=== PATIENT | male | born 1965 | race Caucasian/White ===

== ENCOUNTER 2022-07-01 23:32 | Inpatient (IN) | payer MEDICARE, SELFPAY ==
[2022-07-01 23:33] VITALS: BP 137/99; PULSE 117; RESP 36; TEMP 36.1; O2SAT 99; BMI 23.8
--- NOTE | 2022-07-01 23:38 | EKG12_ITS ---
Test Reason : CP Blood Pressure : / mmHG Vent. Rate : 113 BPM Atrial Rate : 113 BPM P-R Int : 156 ms QRS Dur : 092 ms QT Int : 336 ms P-R-T Axes : 069 044 110 degrees QTc Int : 460 ms Sinus tachycardia Nonspecific ST and T wave abnormality Abnormal ECG Confirmed by RODGER ARMAS, GAVINO ([id number]), industrial editor ROEL GARCIA ([id number]) on 07/04/2022 11:24:24 AM Referred By: MAXIME Confirmed By:GAVINO SOARES MD
--- NOTE | 2022-07-01 23:45 | RAD_ITS ---
INDICATION: chest pain EXAMINATION/TECHNIQUE: X-RAY - XR Chest 1 View COMPARISON: No previous relevant examinations available for comparison.. FINDINGS: LIFE-SUPPORT AND LINES: 1. None HEART AND VESSELS: The cardiac silhouette, pulmonary vasculature have normal appearance. No evidence of congestive failure. LUNGS AND PLEURAL SPACES: Lungs are well expanded however subtle area of density projecting along the lateral aspect of the RIGHT midlung adjacent to the posterior RIGHT sixth rib. This is of uncertain etiology, however focal area of atelectasis versus obscured nodule are considerations. No consolidation, no effusion. MEDIASTINUM AND HILAR REGIONS: No masses adenopathy noted. No areas of calcification. Visualized upper airway is normal in position. BONY ELEMENTS: No acute bony changes noted. RAD/Chest 1 View (Portable) IMPRESSION: 1. Subtle area of density along periphery the RIGHT midlung projecting at the level of the RIGHT posterior sixth rib. This is of uncertain etiology, however atelectasis versus area infiltrate, alternatively obscured nodule are considerations. Consider short-term follow-up in the absence previous imaging evaluation with CT is a consideration. 2. No other evidence of acute cardiopulmonary process. No congestive failure. Electronically Signed: Cordell Hunter MD at 0:19 EST ,
[2022-07-01 23:47] LABS: Absolute Neutrophil Count 20.9 X10^3/uL (2.0-7.7); Basophil# 0.09 X10^3/uL; Basophil% 0.4 % (0-1); Hematocrit 47.4 % (40-54); Hemoglobin 16.5 g/dL (13.0-16.5); Mean Corp Hgb Conc 34.8 g/dL (32-36); Mean Corpuscular Hgb 33.4 pg (27.0-32.0); Mean Platelet Vol. 9.8 fl (6.2-12.0); Monocyte% 4.1 % (0-10); NRBC Flagged by Analyzer 0 % (0-5); Neutrophil # 20.92 X10^3/uL (2.7-7.7); POSITIVE DIFFERENTIAL YES; Platelet Count 312 K/mm3 (150-450); RBC Distribution Width CV 12.6 % (11.6-14.6); RBC Distribution Width SD 44.8 fl (35.1-43.9); Red Blood Count 4.94 M/mm3 (4.6-6.2); White Blood Count 24.3 K/mm3 (4.4-11.0)
[2022-07-01 23:52] LABS: Differential Indicated SCAN CRITERIA MET
[2022-07-02] VITALS (17 sets, daily range): BP systolic 108–146; BP diastolic 69–100; PULSE 74–99; RESP 12–25; TEMP 36.2–37.1; O2SAT 94–98; BMI 24.5
[2022-07-02 00:03] LABS: Anion Gap 14 (5-15); BUN 17 mg/dL (7-18); BUN/Creat Ratio 7.8 RATIO (10-20); Calcium,Total 10.4 mg/dL (8.5-10.1); Chloride 103 mmol/L (98-107); Creatinine, Serum 2.18 mg/dL (0.70-1.30); EST Glomerular Filtration Rate 33 mL/min (>60); Est Glom Filt Rate - Afr Amer 40 mL/min (>60); Estimated Creatinine Clearance 40.05 ml/min; Glucose 154 mg/dL (74-106); Potassium 3.8 mmol/L (3.5-5.1); Sodium Level 139 mmol/L (136-145); Troponin-I HS 27 pg/mL (3.0-78.0)
[2022-07-02] MEDS: Morphine 4 MG/ML Syringe IV (00:19)
[2022-07-02] MEDS: Ondansetron 4 MG/2 ML Vial IV (00:19)
[2022-07-02] MEDS: 0.9% Normal Saline 1,000 ML 999 ML IV ×2 (00:19→01:11)
[2022-07-02 00:25] LABS: Mucous, Urine 0 SEEN /hpf (<or=2+)
[2022-07-02 00:34] LABS: AST(SGOT) 17 U/L (15-37); Alanine Aminotransfer ALT/SGPT 27 U/L (16-61); Albumin, Serum 5.1 g/dL (3.2-5.0); Alkaline Phosphatase 109 U/L (45-117); Bilirubin, Direct 0.27 mg/dL (0.00-0.30); Globulin 4.1 g/dL (2.2-4.2); Lipase 112 U/L (73-393); Protein, Total 9.2 g/dL (6.4-8.2)
[2022-07-02 00:35] LABS: Differential Comment SCANNED
[2022-07-02 00:38] LABS: Color, Urine Yellow (Yellow); Glucose, Dipstick Normal (Normal); Ketone-Dipstick 15 mg/dl (Negative); Leukocyte Esterase-Dipstick 100 /ul (Negative); Nitrite-Dipstick Negative (Negative); Occult Blood-Urine 25 /ul (Negative); Protein-Dipstick 100 mg/dl (Negative); Specific Gravity, Urine 1.025 (1.002-1.030); Urine Clarity Cloudy (Clear); Urine Urobilinogen 1 mg/dl (Normal)
[2022-07-02 00:39] LABS: Urine Bilirubin Dipstick 1 mg/dL (Negative)
[2022-07-02 00:46] LABS: White Blood Cells 25-50 SEEN /hpf (0-5)
[2022-07-02 00:47] LABS: Bacteria 1+ /hpf (None Seen); Hyaline Cast 25-50 SEEN /lpf (0-5); Red Blood Cells-Urine 5-10 SEEN /hpf (0-5); Squamous Epithelial Cells - UA 0-5 SEEN /hpf (0-5)
--- NOTE | 2022-07-02 00:59 | CT_ITS ---
INDICATION: pain syncopal episode, chest pain, history of lung nodules. EXAMINATION: CT CHEST, ABDOMEN AND PELVIS WITHOUT CONTRAST TECHNIQUE: Helically acquired images were obtained of the chest, abdomen and pelvis. A radiation dose optimization technique was used for this scan. IV Contrast dosage and agent: None. Oral contrast: None. Radiation Dose (provided by facility) CTDIvol (NA ) mGy, DLP ( NA) mGy-cm COMPARISON: Previous imaging reported for evaluation of lung nodules is not currently available. FINDINGS: ----Chest: LUNGS, PLEURA AND LARGE AIRWAYS: Lungs are well-expanded. No consolidation or effusion noted. Multiple areas of pleural thickening and scattered areas of nodularity are noted. No damari pulmonary infiltrate identified. There is a RIGHT upper lobe pulmonary nodule of mildly irregular contour measuring approximately 5.6 mm size (series 6: Image 51. Additional pulmonary nodule in the LEFT upper lobe measures approximately 4 x 5 mm (series 6: Image 62). Subtle patchy areas of interstitial prominence noted at both lung bases. No pleural effusion. THYROID: No thyroid lesions. HEART AND PERICARDIUM: Heart size is normal. No pericardial effusion. No coronary vascular calcifications noted. VESSELS: Thoracic aorta is not dilated. MEDIASTINUM AND XAVI: No mediastinal or hilar adenopathy. Esophagus is unremarkable. No hiatal hernia. BONES: No lytic or blastic abnormality. ----Abdomen/Pelvis: LIVER: The liver has normal configuration and density given the limitation of noncontrast exam. GALLBLADDER AND BILIARY TREE: Gallbladder is distended, no radiodense calcifications or duct dilatation. No pericholecystic fluid. No intra- or extrahepatic biliary ductal dilation. PANCREAS: No focal cystic or solid mass. [] SPLEEN: Normal size without focal cystic or solid mass. ADRENAL GLANDS: No nodules. KIDNEYS AND URETERS: Normal renal size and position. No hydronephrosis or nephrolithiasis. PERITONEUM: No ascites or free air. No other fluid collection. BOWEL: No evidence of acute appendicitis. No stomach or bowel distension. No focal inflammatory change. LYMPH NODES: No enlarged mesenteric or retroperitoneal lymph nodes. VESSELS: Aorta is non-dilated. URINARY BLADDER: Unremarkable. REPRODUCTIVE ORGANS: No pelvic masses. ABDOMINAL WALL: No discrete abdominal or pelvic wall hernia. BONES: No lytic or blastic abnormality. Mild chronic wedging of multiple thoracic vertebral with mild deformity of the superior endplates however no acute fractures or destructive bony process noted. CT/CT Chest, Abd, Pelvis WO Cont IMPRESSION: 1. Mild pleural and parenchymal scarring and atelectasis at the lung bases. No pulmonary consolidation or effusion. 2. Scattered pulmonary nodules as detailed. Previous cross-sectional imaging is not available for comparison at this time, however follow-up per the previous recommendations is warranted to assure stability. 3. No masses or adenopathy involving the mediastinum or hilar regions. 4. No evidence of masses bowel obstruction abscess free fluid or free air. Normal appendix noted. No evidence diverticulitis. 5. Distended gallbladder without evidence radiodense calcifications, pericholecystic fluid or duct dilatation. 6. No evidence of obstructive uropathy. Electronically Signed: Cordell Hunter MD at 2:10 EST ,
[2022-07-02 01:15] LABS: Procalcitonin 0.19 ng/mL (0.00-0.09)
[2022-07-02 02:11] LABS: Troponin-I HS 33 pg/mL (3.0-78.0)
--- NOTE | 2022-07-02 02:43 | PCM.HP.STD ---
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 He had nausea, and vomiting and he did not have the strength to perform; and he felt like he could not stand so he laid on the ground. He was pale and diaphoretic. He had subjective fever, chills and rigors. He reports chest tightness; shortness of breath and abdominal pain. He has diffuse abdominal pain and more prominent pain at his right upper quadrant of his abdomen. He called his daughter and was brought to the emergency department right away. Patient has had increased anxiety and stress for a couple of months. He has had malaise about a day before presentation. Also he has had a decreased appetite about 3 days before presentation. He has a dysuria that has not changed from his baseline. This dysuria every morning is unchanged. He thinks that he has had decreased urine output/decreased frequency of urination a day of presentation. However he think that his fluid intake decreased on the day of presentation. At the emergency room patient was empirically started on vancomycin and Zosyn. Reportedly has some rash his face that exacerbated with vancomycin administration. Reportedly he was started on a statin about a week ago but stopped after taking 2 days because of myopathy. [facility] Medical History (Updated 07/02/22 @ 04:[address] Ab Castañeda MD) Anxiety Depression Hyperlipidemia Home Medications atorvastatin 40 mg tablet (Lipitor) 40 mg PO DAILY 07/01/22 [History Last Taken Unknown] buspirone 10 mg tablet 10 mg PO BID 07/01/22 [History Last Taken Unknown] cholecalciferol (vitamin D3) 125 mcg (5,000 unit) tablet (Vitamin D3) 1,250 mcg PO DAILY 07/01/22 [History Last Taken Unknown] mirtazapine 15 mg tablet 15 mg PO DAILY 07/01/22 [History Last Taken Unknown] paroxetine HCl 40 mg tablet (Paxil) 40 mg PO DAILY 07/01/22 [History Last Taken Unknown] sildenafil 100 mg tablet 100 mg PO DAILY 07/01/22 [History Last Taken Unknown] Allergy/AdvReac Type Severity Reaction Status Date / Time lidocaine Allergy Other Verified 07/01/22 23:46 naproxen [From Naprosyn] Allergy PT UNSURE Verified 07/01/22 23:36 OF REACTION Family History (Updated 07/02/22 @ 03:[address] Ab Castañeda MD) Other Heart disease Leukemia Lymphoma Surgical History (Updated 07/02/22 @ 03:[address] Ab Castañeda MD) History of tonsillectomy Social History (Updated 07/02/22 @ 03:[address] Ab Castañeda MD) Smoking Status: Former smoker substance use type: marijuana ROS ROS Narrative Pertinent positives and pertinent negatives as noted in HPI. All other systems were reviewed and are negative Vital Signs Vital Signs Vital Signs: 07/01/22 23:33 07/01/22 23:39 07/02/22 01:27 Temperature 97.0 F L Temperature Source Temporal Pulse Rate 117 H 94 Respiratory Rate 36 H 17 Blood Pressure 137/99 H 146/83 H Blood Pressure Mean 111 104 Pulse Ox 99 98 Oxygen Delivery Method Room Air Room Air Room Air 07/02/22 01:28 07/02/22 02:24 Temperature 98.2 F Temperature Source Oral Pulse Rate 95 Respiratory Rate 16 Blood Pressure 124/88 H Blood Pressure Mean 100 Pulse Ox 96 Oxygen Delivery Method Room Air Weight Weight: 79.9 kg Body Mass Index (BMI) 23.8 Physical Exam Narrative Physical exam: General: Well-nourished, well-developed. Head: Normocephalic, atraumatic, no tenderness Eyes: Vision is grossly intact. EOMI ENT, no trauma, mildly dry mucous membranes, no rhinorrhea Neck: Nontender, No thyromegaly. CVS: Regular rate and rhythm. S1-S2 present. No murmur, gallop or rub. Respiratory : clear to auscultation bilaterally, chest wall nontender, no wheezing Abdomen: Soft, nondistended, normal bowel sounds, no masses. Right upper quadrant tenderness : Deferred Back: Nontender, no CVA tenderness, no midline spinal tenderness, deformities, step-offs Extremities: Nontender full range of motion, no trauma Skin: Normal color, no trauma, abrasions. Erythematous rash on face (reportedly exacerbated with recommend administration of the ED; erythematous rash lower extremities (reportedly from lichen planus). Neuro: Alert, oriented, cranial nerves II through XII grossly intact. Psychiatry: Normal mood. Normal affect. Not depressed. Not anxious. Results Lab / Micro Data Result Diagrams: 07/01/22 23:35 07/01/22 23:35 Labs: Laboratory Results - last 24 hr 07/01/22 23:35: WBC 24.3 H, RBC 4.94, Hgb 16.5, Hct 47.4, MCV 96.0 H, MCH 33.4 H, MCHC 34.8, RDW Std Deviation 44.8 H, RDW Coeff of Miguel 12.6, Plt Count 312, MPV 9.8, Immature Gran % (Auto) 0.500, Neut % (Auto) 86.0 H, Lymph % (Auto) 9.0 L, [place] % (Auto) 4.1, Eos % (Auto) 0.0, Baso % (Auto) 0.4, Absolute Neuts (auto) 20.9 H, Absolute Lymphs (auto) 2.20, Nucleated RBC % 0, Differential Comment SCANNED 07/01/22 23:35: Sodium 139, Potassium 3.8, Chloride 103, Carbon Dioxide 22.0, Anion Gap 14, BUN 17, Creatinine 2.18 H, Estim Creat Clear Calc 40.05, Est GFR (MDRD) Af Amer 40 L, Est GFR (MDRD) Non-Af 33 L, BUN/Creatinine Ratio 7.8 L, Glucose 154 H, Calcium 10.4 H, Troponin I High Sens 27 07/01/22 23:35: Total Bilirubin 1.10 H, Direct Bilirubin 0.27, AST 17, ALT 27, Alkaline Phosphatase 109, Total Protein 9.2 H, Albumin 5.1 H, Globulin 4.1, Lipase 112 07/02/22 00:18: Lactic Acid 4.0 H* 07/02/22 00:18: Procalcitonin 0.19 H 07/02/22 00:18: Urine Color Yellow, Urine Clarity Cloudy, Urine pH 5.0, Ur Specific [place] 1.025, Urine Protein 100 H, Urine Glucose (UA) Normal, Urine Ketones 15 H, Urine Occult Blood 25 H, Urine Nitrite Negative, Urine Bilirubin 1 H, Urine Urobilinogen 1 H, Ur Leukocyte Esterase 100 H, Urine RBC 5-10 SEEN, Urine WBC 25-50 SEEN, Ur Squamous Epith Cells 0-5 SEEN, Urine Bacteria 1+, Hyaline Casts 25-50 SEEN, Urine Mucus 0 SEEN 07/02/22 01:35: Troponin I High Sens 33 Micro: Microbiology 07/02/22 00:15 Nasal Secretion SARS-CoV-2 & FLU Antigen (Rapid) - Final Radiology Impression Chest X-Ray 07/01/22 23:45 IMPRESSION: 1. Subtle area of density along periphery the RIGHT midlung projecting at the level of the RIGHT posterior sixth rib. This is of uncertain etiology, however atelectasis versus area infiltrate, alternatively obscured nodule are considerations. Consider short-term follow-up in the absence previous imaging evaluation with CT is a consideration. 2. No other evidence of acute cardiopulmonary process. No congestive failure. Electronically Signed: Cordell Hunter MD at 0:19 EST , Chest/Abdomen/Pelvis CT 07/02/22 00:59 IMPRESSION: 1. Mild pleural and parenchymal scarring and atelectasis at the lung bases. No pulmonary consolidation or effusion. 2. Scattered pulmonary nodules as detailed. Previous cross-sectional imaging is not available for comparison at this time, however follow-up per the previous recommendations is warranted to assure stability. 3. No masses or adenopathy involving the mediastinum or hilar regions. 4. No evidence of masses bowel obstruction abscess free fluid or free air. Normal appendix noted. No evidence diverticulitis. 5. Distended gallbladder without evidence radiodense calcifications, pericholecystic fluid or duct dilatation. 6. No evidence of obstructive uropathy. Electronically Signed: Cordell Hunter MD at 2:10 EST , Assessment & Plan Assessment/Plan (1) Sepsis: (2) UTI (urinary tract infection): (3) Right upper quadrant abdominal pain: (4) Anxiety attack: (5) AMANDA (acute kidney injury): PLAN: Plan The patient presented with sepsis due to (UTI) with acute sepsis related organ dysfunction as evidenced by (AMANDA with creatinine of 2.18; lactic acidosis with lactic acid of 4.0). SIRS criteria: Respiratory rate more than 20 Heart rate more than 90 WBC more than 12,000. His white count on presentation was 24,300. PCO2 less than 32 mmHg Urinalysis showed negative nitrite; positive urine leukocytes; urine WBC 25-50; squamous cell normal; urine bacteria 1+ Treated with vancomycin and Zosyn at the emergency department. Zosyn continued. Procalcitonin is unremarkable 0.19 but that can be spurious since patient has AMANDA. Blood culture and urine culture obtained emergency department, follow. Trend lactic acid. Right upper quadrant pain CAT scan showed distended gallbladder. CAT scan was individually visualized and interpreted and I agree radiologist interpretation. Will check ultrasound of gallbladder to rule out cholecystitis. AMANDA/ATN Creatinine of 2.18 on presentation. No records on [facility] to compare with. Of note patient goes to the PA. He denies history of CKD. BUN is 17. Urine over creatinine is 7.8. With hyaline cast cannot rule out ATN. Received normal saline bolus in the emergency department. Gentle IV hydration. Trend CMP. Anxiety attack Continue home mood medications. Stable Hypercalcemia Calcium of 10.4. IV hydration. Trend CMP. Check vitamin D level. Hyperbilirubinemia Mild elevation of total bilirubin of 1.10 at presentation. Secondary to stress/disease. Trend CMP. 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 Continue outpatient follow-up. DVT prophylaxis: Lovenox ordered Charges/Coding Visit Charges Inpatient E&M: 39478 Init Hosp L3
--- NOTE | 2022-07-02 03:13 | ED.RN ---
THIS RN CALLED REPORT TO ICU AT 0313. REPORT GIVEN TO NICOLE BURGESS.
--- NOTE | 2022-07-02 03:26 | EDS_ITS ---
HPI History of Present Illness Chief Complaint: Chest Pain Narrative Narrative: Patient is a 57-year-old male with past medical history of anxiety. 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 He states while he was doing this he was pale and diaphoretic. He states there is no overt chest pain associated with this. Family states they were concerned this could be cardiac in nature however and therefore brought him in for evaluation. The patient denies any illicit substance or alcohol use and he states he does not believe there would been any possibility of him being poisoned while at his show. He also states that with his anxiety he does not typically eat or drink well especially when it is flared up and states he has not had much intake for about 3 to 5 days. [facility] Medical History (Updated 07/02/22 @ 05:[address] Harish Islas DO) Anxiety Depression Hyperlipidemia Home Medications atorvastatin 40 mg tablet (Lipitor) 40 mg PO DAILY 07/01/22 [History Last Taken Unknown] buspirone 10 mg tablet 10 mg PO BID 07/01/22 [History Last Taken Unknown] cholecalciferol (vitamin D3) 125 mcg (5,000 unit) tablet (Vitamin D3) 1,250 mcg PO DAILY 07/01/22 [History Last Taken Unknown] mirtazapine 15 mg tablet 15 mg PO DAILY 07/01/22 [History Last Taken Unknown] paroxetine HCl 40 mg tablet (Paxil) 40 mg PO DAILY 07/01/22 [History Last Taken Unknown] sildenafil 100 mg tablet 100 mg PO DAILY 07/01/22 [History Last Taken Unknown] Allergy/AdvReac Type Severity Reaction Status Date / Time lidocaine Allergy Other Verified 07/01/22 23:46 naproxen [From Naprosyn] Allergy PT UNSURE Verified 07/01/22 23:36 OF REACTION Family History (Updated 07/02/22 @ 03:[address] Ab Castañeda MD) Other Heart disease Leukemia Lymphoma Surgical History (Updated 07/02/22 @ 03:[address] Ab Castañeda MD) History of tonsillectomy Social History (Updated 07/02/22 @ 03:[address] Ab Castañeda MD) Smoking Status: Former smoker substance use type: marijuana ROS ROS ED Constitutional Constitutional ED: Reports sweats; Denies chills or fever(s) Eyes Eyes: Denies change in vision ENT ENT ED: Denies sore throat Cardiovascular Cardiovascular: Denies chest pain Respiratory/Chest Respiratory/Chest: Denies cough or dyspnea Gastrointestinal Gastrointestinal: Reports abdominal pain, nausea and vomiting; Denies diarrhea Genitourinary Genitourinary ED: Denies dysuria Musculoskeletal Musculoskeletal: Denies myalgias Integumentary Denies rash Neurologic Neurologic: Denies headache(s) Psychiatric Psychiatric: Reports anxiety; Denies suicidal ideation or suicidal thoughts Hematologic/Lymphatic Hematologic/Lymphatic: Denies easy bleeding or easy bruising EXAM Physical Exam Const Vital Signs: 07/01/22 23:33 07/01/22 23:39 07/02/22 01:27 Temperature 97.0 F L Temperature Source Temporal Pulse Rate 117 H 94 Respiratory Rate 36 H 17 Blood Pressure 137/99 H 146/83 H Blood Pressure Mean 111 104 Pulse Ox 99 98 Oxygen Delivery Method Room Air Room Air Room Air 07/02/22 01:28 07/02/22 02:24 07/02/22 03:04 Temperature 98.2 F 98.2 F Temperature Source Oral Oral Pulse Rate 95 99 Respiratory Rate 16 25 H Blood Pressure 124/88 H 143/89 H Blood Pressure Mean 100 107 Pulse Ox 96 94 Oxygen Delivery Method Room Air Room Air 07/02/22 03:05 Temperature Temperature Source Pulse Rate 96 Respiratory Rate 21 H Blood Pressure 143/89 H Blood Pressure Mean 107 Pulse Ox 95 Oxygen Delivery Method Room Air Positive well nourished and well developed General Appearance ED: well developed HEENT Reports dry mucous membranes Mouth ED: Yes dry mucous membranes Mouth: dry mucous membranes Eyes PERRL and EOMs intact bilaterally General Eye ED: Negative for scleral icterus Neck supple Chest Wall palpation of chest normal Resp normal respiratory effort and clear to auscultation bilaterally Cardio regular rate and regular rhythm Rate: other Other Details: Radial pulses are plus 2 out of 4 bilaterally are equal and symmetric Carotid pulses are equal and symmetric as well GI non-distended GI Narrative: Abdomen is soft and nondistended with normoactive bowel sounds. There is pain with palpation in the right upper quadrant with voluntary guarding at the site. No rigidity or Luong sign present. No fluid wave or pulsatile mass Auscultation: normoactive bowel sounds Palpation: soft Back/Spine no CVA tenderness Extremity normal to inspection Extremity Narrative: No asymmetric edema no pitting edema negative Homans' sign bilaterally Neuro oriented x3 and CN's II-XII intact bilaterally Sensorium / Orientation: alert Psych Psych Narrative: Patient has a nervous/anxious affect Skin Skin Narrative: Patient has erythematous blanchable punctate rash around his mouth and chin without systemic distribution or overt signs of infection. Skin turgor is increased General Skin Exam: Negative for jaundice MDM MDM MDM Narrative Medical decision making narrative: Patient presented to the ER afebrile and he is awake and alert with normal neurologic exam. There is a broad differential regarding his constellation of symptoms so basic blood work EKG and chest x-ray were initially ordered. Blood work showed a white blood cell count at 24.3 with increase to his absolute neutrophil count which could be stress response from his bouts of vomiting or secondary to infection. Therefore blood cultures were obtained as well as lactic acid and procalcitonin. Procalcitonin was normal. Lactic was elevated at 4 the patient also has changes consistent with dehydration and creatinine of approximately 2.2 indicating acute kidney injury. Urinalysis and urine culture were also obtained secondary to the elevated white count lactic acid value and does show some blood and changes concerning for infection. Secondary to the septic changes patient was given 2 L of fluid and started on vancomycin and Zosyn. A CT of his chest abdomen and pelvis was then ordered secondary to the abnormal chest x-ray read as well as the blood in his urine and right upper quadrant abdominal pain. IV contrast was not used as the patient has acute kidney injury. CT scan showed dilation of the gallbladder without radiopaque stones or signs of pericholecystic fluid to suggest acute cholecystitis. After patient was medicated with morphine and Zofran as well as IV fluids he had improvement of his blood pressure as well as pain and no further bouts of vomiting. His troponin was normal at 27 and only changed by 6 points to a value of 33 on the 2-hour delta going against acute cardiac event. At this time based on the severe lab abnormalities and concern for progression to systemic organ failure based on his acute kidney injury with leukocytosis and lactic acidosis he will be placed in the ICU for further care Lab Data Attestation: I reviewed the patient's lab results. Labs: Laboratory Results - last 24 hr 07/01/22 07/01/22 07/01/22 23:35 23:35 23:35 WBC 24.3 H RBC 4.94 Hgb 16.5 Hct 47.4 MCV 96.0 H MCH 33.4 H MCHC 34.8 RDW Std Deviation 44.8 H RDW Coeff of Miguel 12.6 Plt Count 312 MPV 9.8 Immature Gran % (Auto) 0.500 Neut % (Auto) 86.0 H Lymph % (Auto) 9.0 L [place] % (Auto) 4.1 Eos % (Auto) 0.0 Baso % (Auto) 0.4 Absolute Neuts (auto) 20.9 H Absolute Lymphs (auto) 2.20 Nucleated RBC % 0 Differential Comment SCANNED Sodium 139 Potassium 3.8 Chloride 103 Carbon Dioxide 22.0 Anion Gap 14 BUN 17 Creatinine 2.18 H Estim Creat Clear Calc 40.05 Est GFR (MDRD) Af Amer 40 L Est GFR (MDRD) Non-Af 33 L BUN/Creatinine Ratio 7.8 L Glucose 154 H Lactic Acid Calcium 10.4 H Total Bilirubin 1.10 H Direct Bilirubin 0.27 AST 17 ALT 27 Alkaline Phosphatase 109 Troponin I High Sens 27 Total Protein 9.2 H Albumin 5.1 H Globulin 4.1 Lipase 112 Procalcitonin Urine Color Urine Clarity Urine pH Ur Specific [place] Urine Protein Urine Glucose (UA) Urine Ketones Urine Occult Blood Urine Nitrite Urine Bilirubin Urine Urobilinogen Ur Leukocyte Esterase Urine RBC Urine WBC Ur Squamous Epith Cells Urine Bacteria Hyaline Casts Urine Mucus 07/02/22 07/02/22 07/02/22 00:18 00:18 00:18 WBC RBC Hgb Hct MCV MCH MCHC RDW Std Deviation RDW Coeff of Miguel Plt Count MPV Immature Gran % (Auto) Neut % (Auto) Lymph % (Auto) [place] % (Auto) Eos % (Auto) Baso % (Auto) Absolute Neuts (auto) Absolute Lymphs (auto) Nucleated RBC % Differential Comment Sodium Potassium Chloride Carbon Dioxide Anion Gap BUN Creatinine Estim Creat Clear Calc Est GFR (MDRD) Af Amer Est GFR (MDRD) Non-Af BUN/Creatinine Ratio Glucose Lactic Acid 4.0 H* Calcium Total Bilirubin Direct Bilirubin AST ALT Alkaline Phosphatase Troponin I High Sens Total Protein Albumin Globulin Lipase Procalcitonin 0.19 H Urine Color Yellow Urine Clarity Cloudy Urine pH 5.0 Ur Specific [place] 1.025 Urine Protein 100 H Urine Glucose (UA) Normal Urine Ketones 15 H Urine Occult Blood 25 H Urine Nitrite Negative Urine Bilirubin 1 H Urine Urobilinogen 1 H Ur Leukocyte Esterase 100 H Urine RBC 5-10 SEEN Urine WBC 25-50 SEEN Ur Squamous Epith Cells 0-5 SEEN Urine Bacteria 1+ Hyaline Casts 25-50 SEEN Urine Mucus 0 SEEN 07/02/22 01:35 WBC RBC Hgb Hct MCV MCH MCHC RDW Std Deviation RDW Coeff of Miguel Plt Count MPV Immature Gran % (Auto) Neut % (Auto) Lymph % (Auto) [place] % (Auto) Eos % (Auto) Baso % (Auto) Absolute Neuts (auto) Absolute Lymphs (auto) Nucleated RBC % Differential Comment Sodium Potassium Chloride Carbon Dioxide Anion Gap BUN Creatinine Estim Creat Clear Calc Est GFR (MDRD) Af Amer Est GFR (MDRD) Non-Af BUN/Creatinine Ratio Glucose Lactic Acid Calcium Total Bilirubin Direct Bilirubin AST ALT Alkaline Phosphatase Troponin I High Sens 33 Total Protein Albumin Globulin Lipase Procalcitonin Urine Color Urine Clarity Urine pH Ur Specific [place] Urine Protein Urine Glucose (UA) Urine Ketones Urine Occult Blood Urine Nitrite Urine Bilirubin Urine Urobilinogen Ur Leukocyte Esterase Urine RBC Urine WBC Ur Squamous Epith Cells Urine Bacteria Hyaline Casts Urine Mucus Radiography Diagnostic Testing: Clinical Impression(s) from Imaging Studies Chest X-Ray 07/01/22 23:45 IMPRESSION: 1. Subtle area of density along periphery the RIGHT midlung projecting at the level of the RIGHT posterior sixth rib. This is of uncertain etiology, however atelectasis versus area infiltrate, alternatively obscured nodule are considerations. Consider short-term follow-up in the absence previous imaging evaluation with CT is a consideration. 2. No other evidence of acute cardiopulmonary process. No congestive failure. Electronically Signed: Cordell Hunter MD at 0:19 EST , Chest/Abdomen/Pelvis CT 07/02/22 00:59 IMPRESSION: 1. Mild pleural and parenchymal scarring and atelectasis at the lung bases. No pulmonary consolidation or effusion. 2. Scattered pulmonary nodules as detailed. Previous cross-sectional imaging is not available for comparison at this time, however follow-up per the previous recommendations is warranted to assure stability. 3. No masses or adenopathy involving the mediastinum or hilar regions. 4. No evidence of masses bowel obstruction abscess free fluid or free air. Normal appendix noted. No evidence diverticulitis. 5. Distended gallbladder without evidence radiodense calcifications, pericholecystic fluid or duct dilatation. 6. No evidence of obstructive uropathy. Electronically Signed: Cordell Hunter MD at 2:10 EST , Chest x-ray as interpreted by the emergency medicine physician reveals an area of opacity around the right midlung concerning for atelectasis versus infiltrate Discharge Plan Dx/Rx/DC Orders Clinical Impression: UTI (urinary tract infection), Sepsis, AMANDA (acute kidney injury), Right upper quadrant abdominal pain Disposition Disposition: Acute Care Hospital [facility] Discharge Date/Time: 07/02/22 04:16
[2022-07-02 04:23] LABS: Reflex Lactate? Y
[2022-07-02] MEDS: 0.9% Normal Saline 1,000 ML 100 ML IV ×2 (05:02→14:01)
[2022-07-02] MEDS: 0.9% Saline Lock 10 ML Syringe IV (05:08)
[2022-07-02 05:14] LABS: Absolute Lymphocyte Count 1.64 X10^3/uL (0.83-4.51); Absolute Neutrophil Count 16.7 X10^3/uL (2.0-7.7); Basophil# 0.04 X10^3/uL; Basophil% 0.2 % (0-1); Hemoglobin 13.5 g/dL (13.0-16.5); Lymphocyte # 1.64 X10^3/ul (0.83-4.51); Lymphocyte % 8.7 % (19-41); Mean Corp Hgb Conc 34.6 g/dL (32-36); Mean Corpuscular Hgb 34.2 pg (27.0-32.0); Mean Corpuscular Volume 98.7 fL (80-94); Mean Platelet Vol. 9.9 fl (6.2-12.0); Monocyte# 0.51 X10^3/uL; Monocyte% 2.7 % (0-10); NRBC Flagged by Analyzer 0 % (0-5); Neutrophil # 16.67 X10^3/uL (2.7-7.7); Neutrophil % 88.1 % (47-70); Platelet Count 223 K/mm3 (150-450); RBC Distribution Width CV 12.8 % (11.6-14.6); RBC Distribution Width SD 46.7 fl (35.1-43.9); Red Blood Count 3.95 M/mm3 (4.6-6.2); White Blood Count 18.9 K/mm3 (4.4-11.0)
[2022-07-02 05:34] LABS: Troponin-I HS 45 pg/mL (3.0-78.0)
[2022-07-02 05:35] LABS: ALB/GLOB Ratio 1.2 RATIO (0.9-2.4); AST(SGOT) 13 U/L (15-37); Alanine Aminotransfer ALT/SGPT 23 U/L (16-61); Albumin, Serum 3.9 g/dL (3.2-5.0); Alkaline Phosphatase 85 U/L (45-117); Anion Gap 5 (5-15); BUN 16 mg/dL (7-18); BUN/Creat Ratio 12.7 RATIO (10-20); Calcium,Total 8.2 mg/dL (8.5-10.1); Chloride 108 mmol/L (98-107); Creatinine, Serum 1.26 mg/dL (0.70-1.30); EST Glomerular Filtration Rate 62 mL/min (>60); Est Glom Filt Rate - Afr Amer 75 mL/min (>60); Estimated Creatinine Clearance 69.29 ml/min; Globulin 3.2 g/dL (2.2-4.2); Glucose 108 mg/dL (74-106); Potassium 4.4 mmol/L (3.5-5.1); Protein, Total 7.1 g/dL (6.4-8.2); Sodium Level 139 mmol/L (136-145)
[2022-07-02 05:37] LABS: Lactic Acid 0.8 mmol/L (0.4-1.9)
--- NOTE | 2022-07-02 05:55 | US_ITS ---
STUDY: ABDOMINAL ULTRASOUND - RIGHT UPPER QUADRANT REASON FOR VISIT: Male, 57 years old Right upper quadrant pain; nausea and vomiting TECHNIQUE: Ultrasound evaluation of the right upper quadrant was performed with real-time and static meyer-scale imaging. TECHNICAL QUALITY: Adequate. COMPARISON: None. FINDINGS: Liver: The liver measures 16.7 cm. There is a heterogeneous echogenicity of the liver. The bile ducts are within normal limits. There is hepatic color flow. The direction of portal flow is hepatopetal. There is no demonstrated mass lesion. Gallbladder: Normal distended gallbladder. The gallbladder wall measures 1.7 mm. There is a negative sonographic Luong''s sign. There is no pericholecystic fluid. There are no gallstones. Common Bile Duct (C.B.D.): The common bile duct measures 3.0 mm. Pancreas: Normal size of the head, body and tail of the pancreas. There is normal echogenicity of the pancreas. There is no demonstrated pancreatic mass or cyst. Right Kidney: Normal size of the right kidney. The right kidney measures 11.1 cm x 5.3 cm x 5.9 cm. Normal renal cortex. The right cortex measures 1.8 cm. There is no demonstrated renal mass or cyst. There is no right hydronephrosis. US/Gallbladder IMPRESSION: Heterogeneous hepatic echotexture. Electronically Signed: Vidal Villareal MD at 15:23 EST ,
--- NOTE | 2022-07-02 08:21 | CON.PCM.CC_ITS ---
Assessment & Plan Assessment/Plan (1) Sepsis: (2) AMANDA (acute kidney injury): PLAN: Plan RECOMMENDATIONS: 1. Agree with empiric antibiotics pending cultures 2. Okay to leave the intensive care unit from my perspective 3. Consider fluid resuscitation with LR after current bag of normal saline 4. No indication for vancomycin. Consider transition to ceftriaxone 5. Increase activity as tolerated IMPRESSIONS: 1. Possible sepsis secondary to UTI Patient with elevated lactate, creatinine and leukocytosis on presentati on. Patient has responded well to fluid resuscitation. No significant hypotension has been noted. Urinalysis is suggestive of a possible UTI, but patient does not have symptomatology at this time. GI source cannot be excluded. Unclear if patient may have had a syncopal event secondary to dehydr ation. Patient has remained hemodynamically stable, so likely okay to leave the intensive care unit. Patient does not have a history of recent antibiotics, so could likely use community-acquired antibiotics. No indication for vancomycin. 2. Acute kidney injury Patient with significant improvement in creatinine overnight with fluid resuscitation. Presenting creatinine of 2.18 appears to be significantly higher than baseline. Patient does have protein in the urine, but not in nephrotic levels. If patient fails to normalize, evaluation for nephrotic/nephritic syndrome may be appropriate. 3. Anxiety/depression/hypercalcemia/hyperbilirubinemia/pulmonary nodules Complicates care, management, recovery and prognosis. Pulmonary nodules would be of marginal concern in the acute status. These could be related to patient's underlying sepsis. 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 A follow-up CT scan in 3 months would be sufficient in my opinion, so no further inpatient concerns would be noted. HPI Consult Data Date of Consult: 07/02/22 HPI Narrative Reason for Consultation: Sepsis HPI Narrative: YANDY BRYANT is a 57 M, with past medical history listed below, who presents to [facility] 07/02[facility]22 secondary to collapsing with nausea and vomiting. Patient reportedly was pale and diaphoretic at this time. Patient did not reported any chest pain, but did have an abdominal tightness. 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 Patient had denied any illicit substance or alcohol use. Patient did not take any unknown medications. Patient reportedly states that he does have significant anxiety at baseline and thought that the abdominal pressure he was feeling for the last 3 to 5 days was associated with anxiety. Patient did not reported any dysuria. Patient does have sildenafil on his home medications, but states he has not used this recently. In the ER, patient was afebrile, but tachycardic at 117 bpm. Patient was saturating well and blood pressures were adequate. Patient was noted to have dry mucous membranes. Laboratory work-up showed a white blood cell count of 24.3, hemoglobin of 16.5 and platelets of 312. Chemistry showed an elevated creatinine of 2.18 with a glucose of 154. Patient did have a mild elevation in total bilirubin. Patient's initial lactate was elevated at 4 with a procalcitonin of 0.19. UA was somewhat suggestive of a UTI. Initial troponins were negative. Chest x-ray was relatively unremarkable. Abdominal, pelvis and chest CT showed possible nodules. Since being in the intensive care unit, patient's blood pressures have remained stable. Patient feels subjectively much improved compared to previous. Patient is not reporting any shortness of breath or cough. Patient is not aware of any recent changes attributed to an acute illness. Patient does believe he could have been exposed to illness given his participation in the band. Patient reports many symptoms, but has attributed this to his anxiety. Patient has reported decreased p.o. intake recently, but this is not planned. Review of systems otherwise negative from a constitutional, HEENT, respiratory, cardiovascular, GI, genitourinary, musculoskeletal, skin, neurologic, psychiatric and hematologic system unless stated above. [facility] Medical History Anxiety Depression Hyperlipidemia Home Medications atorvastatin 40 mg tablet (Lipitor) 40 mg PO DAILY 07/01/22 [History Last Taken Unknown] buspirone 10 mg tablet 10 mg PO BID 07/01/22 [History Last Taken Unknown] cholecalciferol (vitamin D3) 125 mcg (5,000 unit) tablet (Vitamin D3) 1,250 mcg PO DAILY 07/01/22 [History Last Taken Unknown] mirtazapine 15 mg tablet 15 mg PO DAILY 07/01/22 [History Last Taken Unknown] paroxetine HCl 40 mg tablet (Paxil) 40 mg PO DAILY 07/01/22 [History Last Taken Unknown] sildenafil 100 mg tablet 100 mg PO DAILY 07/01/22 [History Last Taken Unknown] Allergy/AdvReac Type Severity Reaction Status Date / Time lidocaine Allergy Other Verified 07/01/22 23:46 naproxen [From Naprosyn] Allergy PT UNSURE Verified 07/01/22 23:36 OF REACTION Family History Other Heart disease Leukemia Lymphoma Surgical History History of tonsillectomy Social History Smoking Status: Former smoker substance use type: marijuana ROS ROS Narrative See HPI Physical Exam Const alert, oriented x3 and no apparent distress General Appearance: cooperative and well developed HEENT normocephalic, head/scalp atraumatic and moist oral mucous membranes Eyes PERRL, EOMs intact bilaterally, conjunctivae normal and no scleral icterus Neck full ROM and no lymphadenopathy Chest inspection of chest normal Resp normal respiratory effort and no use of accessory muscles Effort and Inspection: able to speak in complete sentences Auscultation: clear to auscultation bilaterally; Negative for rales, rhonchi or wheezes Percussion: Negative for dullness Cardio regular rate, regular rhythm, S1 normal heart sound, S2 normal heart sound, no murmurs, no rub and no gallops GI normal to inspection, nondistended, normoactive bowel sounds no CVA tenderness Extremity no clubbing, cyanosis or edema Skin no rashes or lesions noted Neuro oriented x3, CN's II-XII intact bilaterally, moves all extremities and no focal motor deficits Psych cooperative Mood & Affect: anxious Lab / Micro Data Attestation: I reviewed the patient's lab results. Result Diagrams: 07/02/22 04:55 07/02/22 04:55 Labs: Laboratory Results - last 24 hr 07/01/22 23:35: WBC 24.3 H, RBC 4.94, Hgb 16.5, Hct 47.4, MCV 96.0 H, MCH 33.4 H , MCHC 34.8, RDW Std Deviation 44.8 H, RDW Coeff of Miguel 12.6, Plt Count 312, MPV 9.8, Immature Gran % (Auto) 0.500, Neut % (Auto) 86.0 H, Lymph % (Auto) 9.0 L, [place] % (Auto) 4.1, Eos % (Auto) 0.0, Baso % (Auto) 0.4, Absolute Neuts (auto) 20.9 H, Absolute Lymphs (auto) 2.20, Nucleated RBC % 0, Differential Comment SCANNED 07/01/22 23:35: Sodium 139, Potassium 3.8, Chloride 103, Carbon Dioxide 22.0, Anion Gap 14, BUN 17, Creatinine 2.18 H, Estim Creat Clear Calc 40.05, Est GFR (MDRD) Af Amer 40 L, Est GFR (MDRD) Non-Af 33 L, BUN/Creatinine Ratio 7.8 L, Glucose 154 H, Calcium 10.4 H, Troponin I High Sens 27 07/01/22 23:35: Total Bilirubin 1.10 H, Direct Bilirubin 0.27, AST 17, ALT 27, Alkaline Phosphatase 109, Total Protein 9.2 H, Albumin 5.1 H, Globulin 4.1, Lipase 112 07/02/22 00:18: Lactic Acid 4.0 H* 07/02/22 00:18: Procalcitonin 0.19 H 07/02/22 00:18: Urine Color Yellow, Urine Clarity Cloudy, Urine pH 5.0, Ur Specific [place] 1.025, Urine Protein 100 H, Urine Glucose (UA) Normal, Urine Ketones 15 H, Urine Occult Blood 25 H, Urine Nitrite Negative, Urine Bilirubin 1 H, Urine Urobilinogen 1 H, Ur Leukocyte Esterase 100 H, Urine RBC 5-10 SEEN, Urine WBC 25-50 SEEN, Ur Squamous Epith Cells 0-5 SEEN, Urine Bacteria 1+, Hyali ne Casts 25-50 SEEN, Urine Mucus 0 SEEN 07/02/22 01:35: Troponin I High Sens 33 07/02/22 04:55: WBC 18.9 H, RBC 3.95 L, Hgb 13.5, Hct 39.0 L, MCV 98.7 H, MCH 34.2 H, MCHC 34.6, RDW Std Deviation 46.7 H, RDW Coeff of Miguel 12.8, Plt Count 223, MPV 9.9, Immature Gran % (Auto) 0.300, Neut % (Auto) 88.1 H, Lymph % (Auto) 8.7 L, [place] % (Auto) 2.7, Eos % (Auto) 0.0, Baso % (Auto) 0.2, Absolute Neuts (auto) 16.7 H, Absolute Lymphs (auto) 1.64, Nucleated RBC % 0 07/02/22 04:55: Sodium 139, Potassium 4.4, Chloride 108 H, Carbon Dioxide 26.0, Anion Gap 5, BUN 16, Creatinine 1.26, Estim Creat Clear Calc 69.29, Est GFR (MDRD) Af Amer 75, Est GFR (MDRD) Non-Af 62, BUN/Creatinine Ratio 12.7, Glucose 108 H, Calcium 8.2 L, Total Bilirubin 0.80, AST 13 L, ALT 23, Alkaline Phosphatase 85, Total Protein 7.1, Albumin 3.9, Globulin 3.2, Albumin/Globulin Ratio 1.2 07/02/22 04:55: Troponin I High Sens 45 07/02/22 04:55: Lactic Acid 0.8 Micro: Microbiology 07/02/22 00:15 Nasal Secretion SARS-CoV-2 & FLU Antigen (Rapid) - Final Radiology Impression Chest X-Ray 07/01/22 23:45 IMPRESSION: 1. Subtle area of density along periphery the RIGHT midlung projecting at the level of the RIGHT posterior sixth rib. This is of uncertain etiology, however atelectasis versus area infiltrate, alternatively obscured nodule are considerations. Consider short-term follow-up in the absence previous imaging evaluation with CT is a consideration. 2. No other evidence of acute cardiopulmonary process. No congestive failure. Electronically Signed: Cordell Hunter MD at 0:19 EST Reading Location ID and State: [address] [place] [address] Tel , Service support , Chest/Abdomen/Pelvis CT 07/02/22 00:59 IMPRESSION: 1. Mild pleural and parenchymal scarring and atelectasis at the lung bases. No pulmonary consolidation or effusion. 2. Scattered pulmonary nodules as detailed. Previous cross-sectional imaging is not available for comparison at this time, however follow-up per the previous recommendations is warranted to assure stability. 3. No masses or adenopathy involving the mediastinum or hilar regions. 4. No evidence of masses bowel obstruction abscess free fluid or free air. Normal appendix noted. No evidence diverticulitis. 5. Distended gallbladder without evidence radiodense calcifications, pericholecystic fluid or duct dilatation. 6. No evidence of obstructive uropathy. Electronically Signed: Cordell Hunter MD at 2:10 EST , Charges/Coding Visit Charges Inpatient E&M: 06596 Init Hosp L2
[2022-07-02] MEDS: Enoxaparin 40 MG/0.4 ML Syringe SC (09:18)
[2022-07-02] MEDS: Paroxetine 20 MG Tablet 40 MG PO (09:19)
[2022-07-02] MEDS: busPIRone 5 MG Tablet 10 MG PO ×2 (09:19→21:41)
--- NOTE | 2022-07-02 14:19 | NURSING ---
report called to med-surg 3 for transfer to room 302 ,transferred per chair with belongings
[2022-07-02] MEDS: Acetaminophen 325 MG Tablet 650 MG PO (20:05)
[2022-07-02] MEDS: Mirtazapine 15 MG Tablet PO (21:41)
[2022-07-03] VITALS (7 sets, daily range): BP systolic 106–148; BP diastolic 69–85; PULSE 61–83; RESP 16–18; TEMP 36.5–36.8; O2SAT 95–98
[2022-07-03] MEDS: 0.9% Normal Saline 1,000 ML 100 ML IV ×3 (02:33→22:06)
[2022-07-03 05:33] LABS: Absolute Lymphocyte Count 3.33 X10^3/uL (0.83-4.51); Basophil# 0.07 X10^3/uL; Eosinophil# 0.19 X10^3/uL; Eosinophils% 2.6 % (0-5); Hematocrit 35.5 % (40-54); Lymphocyte # 3.33 X10^3/ul (0.83-4.51); Lymphocyte % 46.4 % (19-41); Mean Corp Hgb Conc 33.8 g/dL (32-36); Mean Corpuscular Volume 100.6 fL (80-94); Mean Platelet Vol. 9.8 fl (6.2-12.0); Monocyte# 0.58 X10^3/uL; Monocyte% 8.1 % (0-10); NRBC Flagged by Analyzer 0 % (0-5); Neutrophil # 2.98 X10^3/uL (2.7-7.7); Neutrophil % 41.6 % (47-70); Platelet Count 186 K/mm3 (150-450); RBC Distribution Width CV 12.9 % (11.6-14.6); RBC Distribution Width SD 47.7 fl (35.1-43.9); Red Blood Count 3.53 M/mm3 (4.6-6.2); White Blood Count 7.2 K/mm3 (4.4-11.0)
[2022-07-03 05:57] LABS: Anion Gap 4 (5-15); BUN 11 mg/dL (7-18); BUN/Creat Ratio 13.4 RATIO (10-20); Calcium,Total 8.2 mg/dL (8.5-10.1); Chloride 115 mmol/L (98-107); Creatinine, Serum 0.82 mg/dL (0.70-1.30); EST Glomerular Filtration Rate 102 mL/min (>60); Est Glom Filt Rate - Afr Amer 123 mL/min (>60); Estimated Creatinine Clearance 106.46 ml/min; Glucose 89 mg/dL (74-106); Potassium 3.7 mmol/L (3.5-5.1); Sodium Level 146 mmol/L (136-145)
[2022-07-03 09:48] LABS: Vitamin D,25 Hydroxy 28.5 ng/mL
[2022-07-03] MEDS: Paroxetine 20 MG Tablet 40 MG PO (10:39)
[2022-07-03] MEDS: busPIRone 5 MG Tablet 10 MG PO ×2 (10:39→22:06)
[2022-07-03] MEDS: Enoxaparin 40 MG/0.4 ML Syringe SC (10:40)
--- NOTE | 2022-07-03 10:48 | CASEMGMT ---
NICOLE CABRERA Assessment: Face to Face with pt for initial transition planning/care coordination assessment. RN RICK introduced self and role at [facility], pt voices understanding and consents to assessment. Pt is A/O x4 and answers all questions appropriately at this time. Pt lying in bed in no distress. Care providers, pharmacy, and demographics verified/updated. Admitting Dx: sepsis PCP:Nick at [facility] Specialists:Pt has an appt with a new GI at the [place] tomorrow. Pt states he has been having scans for lung nodules but does not follow with a pulm. [facility]erred Pharmacy: [facility] Insurance: [place], [facility] Prescription Benefit: no LNOK: [facility] dtr Living Arrangements: Pt lives with girlfriend in a two story house with 4 steps to enter. Pt reports he is I in ADL's and denies concerns at home. Transportation: Pt drives self and denies concerns with transportation. DME/HHC/SNF: Pt denies having any DME in the home, previous HHC or SNF stays. Pt states no concerns with going home at time of dc. Pt states no further concerns/needs. CM to follow. Advised pt to ask CM if any further question/concerns/needs arise, voices understanding. Pt Goal: Home Plan: Home
--- NOTE | 2022-07-03 15:17 | PN.HOSP_ITS ---
Subjective Subjective Patient seen and examined. He had no active complaints. He had eaten breakfast; he does admit to some mild pain in his upper abdomen with eating. HE denies any fever, chills, cough, chest pain, palpitations, dizziness, nausea or vomiting. Review of systems is otherwise negative. Objective Data Objective Data Vital Signs: Vital Signs Temp Pulse Resp BP Pulse Ox O2 Del Method 98.2 F 83 18 108/69 98 Room Air 07/03/22 15:06 07/03/22 15:06 07/03/22 15:06 07/03/22 15:06 07/03/22 15:06 07/03/22 15:06 Oxygen Delivery Method Room Air Weight: 181 lb 3.2 oz Body Mass Index (BMI) 24.5 Intake & Output: Intake and Output for Last 24 Hours 07/01/22 07/02/22 07/03/22 23:59 23:59 23:59 Intake Total 3724.83 / 3724.83 2100 / 2100 Output Total 800 / 1825 3925 / 3925 Balance 2924.83 / 1899.83 -1825 / -1825 Lab / Micro Data Result Diagrams: 07/03/22 05:23 07/03/22 05:23 Labs: Laboratory Results - last 24 hr 07/02/22 04:55: Vitamin D 25-Hydroxy 28.5 07/03/22 05:23: WBC 7.2, RBC 3.53 L, Hgb 12.0 L, Hct 35.5 L, MCV 100.6 H, MCH 34.0 H, MCHC 33.8, RDW Std Deviation 47.7 H, RDW Coeff of Miguel 12.9, Plt Count 186, MPV 9.8, Immature Gran % (Auto) 0.300, Neut % (Auto) 41.6 L, Lymph % (Auto) 46.4 H, [place] % (Auto) 8.1, Eos % (Auto) 2.6, Baso % (Auto) 1.0, Absolute Neuts (auto) 3.0, Absolute Lymphs (auto) 3.33, Nucleated RBC % 0 07/03/22 05:23: Sodium 146 H, Potassium 3.7, Chloride 115 H, Carbon Dioxide 27.0, Anion Gap 4 L, BUN 11, Creatinine 0.82, Estim Creat Clear Calc 106.46, Est GFR (MDRD) Af Amer 123, Est GFR (MDRD) Non-Af 102, BUN/Creatinine Ratio 13.4, Glucose 89, Calcium 8.2 L Micro: Microbiology 07/02/22 00:18 Urine, Clean Catch Urine Culture - Preliminary Culture exhibits no growth. 07/02/22 00:15 Nasal Secretion SARS-CoV-2 & FLU Antigen (Rapid) - Final Physical Exam Const alert, oriented x3 and no apparent distress HEENT head/scalp atraumatic, moist oral mucous membranes and oropharynx normal Head and Scalp: normocephalic Mouth: oral and palatal mucosa normal Eyes PERRL, EOMs intact bilaterally and conjunctivae normal Neck no lymphadenopathy and supple Resp normal respiratory effort, no retractions and no use of accessory muscles Cardio regular rate, regular rhythm, S1 normal heart sound, S2 normal heart sound and no murmurs GI soft to palpation GI Narrative: positive Luong's sign. Mild epigastric tenderness, no guarding or rebound tenderness. 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 Urine cultures pending * on IV ceftriaxone * CT abdomen showed distended gallbladder with no evidence of pericholecystic fluid or duct dilatation. * gallbladder USG pending. * blood and urine cultures pending * #AMANDA * Cr was 2.18. No baseline known * being hydrated with IVF * resolved. Cr is down to 0.82. * will monitor * #Lactic acidosis: lactic acid was 4. Now down to 0.8 with IVF. Will monitor #Depression: on buspirone and mirtazapine DVT prophylaxis: lovenox # Charges/Coding Visit Charges Inpatient E&M: 11329 Subs Hosp L3
[2022-07-03] MEDS: Acetaminophen 325 MG Tablet 650 MG PO (22:05)
[2022-07-03] MEDS: Mirtazapine 15 MG Tablet PO (22:06)
[2022-07-04 03:00] VITALS: BP 131/81; BP 132/77; PULSE 59; PULSE 82; RESP 18; TEMP 36.3; TEMP 36.8; O2SAT 94; O2SAT 96
[2022-07-04 06:08] LABS: Absolute Lymphocyte Count 3.21 X10^3/uL (0.83-4.51); Absolute Neutrophil Count 2.4 X10^3/uL (2.0-7.7); Basophil# 0.06 X10^3/uL; Basophil% 0.9 % (0-1); Eosinophil# 0.33 X10^3/uL; Hematocrit 34.9 % (40-54); Hemoglobin 11.8 g/dL (13.0-16.5); Lymphocyte # 3.21 X10^3/ul (0.83-4.51); Mean Corp Hgb Conc 33.8 g/dL (32-36); Mean Corpuscular Hgb 33.1 pg (27.0-32.0); Monocyte# 0.52 X10^3/uL; Monocyte% 7.9 % (0-10); NRBC Flagged by Analyzer 0 % (0-5); Neutrophil # 2.41 X10^3/uL (2.7-7.7); Neutrophil % 36.9 % (47-70); Platelet Count 192 K/mm3 (150-450); RBC Distribution Width CV 12.5 % (11.6-14.6); RBC Distribution Width SD 45.1 fl (35.1-43.9); Red Blood Count 3.56 M/mm3 (4.6-6.2); White Blood Count 6.6 K/mm3 (4.4-11.0)
[2022-07-04 06:43] LABS: Anion Gap 5 (5-15); BUN 7 mg/dL (7-18); Calcium,Total 8.5 mg/dL (8.5-10.1); Chloride 112 mmol/L (98-107); Creatinine, Serum 0.78 mg/dL (0.70-1.30); EST Glomerular Filtration Rate 108 mL/min (>60); Est Glom Filt Rate - Afr Amer 131 mL/min (>60); Estimated Creatinine Clearance 111.92 ml/min; Glucose 89 mg/dL (74-106); Potassium 3.2 mmol/L (3.5-5.1); Sodium Level 144 mmol/L (136-145)
[2022-07-04 07:24] VITALS: O2SAT 94
[2022-07-04] MEDS: 0.9% Normal Saline 1,000 ML 100 ML IV ×2 (08:36→18:47)
[2022-07-04] MEDS: Paroxetine 20 MG Tablet 40 MG PO (08:37)
[2022-07-04] MEDS: Potassium Chloride Oral Tablet 20 MEQ 60 MEQ PO (08:37)
[2022-07-04] MEDS: Enoxaparin 40 MG/0.4 ML Syringe SC (08:38)
[2022-07-04] MEDS: busPIRone 5 MG Tablet 10 MG PO ×2 (08:38→21:20)
[2022-07-04 09:00] VITALS: BP 145/90; PULSE 66; RESP 18; TEMP 36.7; O2SAT 97
--- NOTE | 2022-07-04 11:47 | CASEMGMT ---
NICOLE CM in to pt room, pt sitting up in bed. [facility] as [facility] registration. TC ander French at [facility] at [phone], left message with update and that declination form was faxed to transfer center.
--- NOTE | 2022-07-04 13:34 | CHAPLAIN ---
Type of Pastoral Visit _x__ Initial Visit ___ Follow-up Visit ___ On-call Visit ___ General Patient Visit ___ Spiritual Assessment ___ Family Conference ___ Bereavement ___ Rapid Response ___ Code Blue ___ Other (describe below) Pastoral Care Referral From _x__ Patient ___ Family ___ Nurse ___ Physician ___ Title I Instructional Assistant ___ Chip Washer ___ Other (describe below) Sacrament/Intervention _x__ Active listening ___ Anointing ___ Uatsdin ___ Bereavement ___ Communion ___ Radha exploration ___ _x__ Life review _x__ Prayer ___ Reconciliation ___ Sacrament of Sick _x__ Supportive presence ___ Wedding ___ Other (describe below) Pastoral Comments at first the patient stated that he was doing fine and being cared for well; pt then given opportunity to talk about his life gives a long detail summary of recent life which he admitted is stressful and filled with difficult days; pt has family issues; 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
--- NOTE | 2022-07-04 13:41 | PN.HOSP_ITS ---
Subjective Subjective Patient seen and examined. He complained of some nausea, but otherwise had an uneventful night. Review of systems is otherwise negative. Objective Data Objective Data Vital Signs: Vital Signs Temp Pulse Resp BP Pulse Ox O2 Del Method 98.0 F 66 18 145/90 H 97 Room Air 07/04/22 09:00 07/04/22 09:00 07/04/22 09:00 07/04/22 09:00 07/04/22 09:00 07/04/22 09:00 Oxygen Delivery Method Room Air Weight: 184 lb 4.903 oz Body Mass Index (BMI) 24.5 Intake & Output: Intake and Output for Last 24 Hours 07/02/22 07/03/22 07/04/22 23:59 23:59 23:59 Intake Total 3724.83 / 3724.83 3055 / 3475 1959 / 1959 Output Total 800 / 1825 4525 / 5425 1275 / 1275 Balance 2924.83 / 1899.83 -1470 / -1950 685 / 685 Lab / Micro Data Result Diagrams: 07/04/22 05:35 07/04/22 05:35 Labs: Laboratory Results - last 24 hr 07/04/22 05:35: WBC 6.6, RBC 3.56 L, Hgb 11.8 L, Hct 34.9 L, MCV 98.0 H, MCH 33.1 H, MCHC 33.8, RDW Std Deviation 45.1 H, RDW Coeff of Miguel 12.5, Plt Count 192, MPV 10.0, Immature Gran % (Auto) 0.300, Neut % (Auto) 36.9 L, Lymph % (Auto) 49.0 H, [place] % (Auto) 7.9, Eos % (Auto) 5.0, Baso % (Auto) 0.9, Absolute Neuts (auto) 2.4, Absolute Lymphs (auto) 3.21, Nucleated RBC % 0 07/04/22 05:35: Sodium 144, Potassium 3.2 L, Chloride 112 H, Carbon Dioxide 27.0, Anion Gap 5, BUN 7, Creatinine 0.78, Estim Creat Clear Calc 111.92, Est GFR (MDRD) Af Amer 131, Est GFR (MDRD) Non-Af 108, BUN/Creatinine Ratio 9.0 L, Glucose 89, Calcium 8.5 Micro: Microbiology 07/02/22 00:18 Urine, Clean Catch Urine Culture - Final Culture exhibits no growth. 07/02/22 01:05 Blood Culture (Wb) - Anticubital Left Blood Culture - Preliminary No growth in 48 hours. 07/02/22 01:20 Blood Culture (Wb) - Anticubital Left Blood Culture - Prel iminary No growth in 48 hours. 07/02/22 00:15 Nasal Secretion SARS-CoV-2 & FLU Antigen (Rapid) - Final Radiography Diagnostic Testing: Radiology Impression Gallbladder Ultrasound 07/02/22 05:55 IMPRESSION: Heterogeneous hepatic echotexture. Electronically Signed: Vidal Villareal MD at 15:23 EST , Physical Exam Const alert, oriented x3 and no apparent distress HEENT head/scalp atraumatic, moist oral mucous membranes and oropharynx normal Head and Scalp: normocephalic Mouth: oral and palatal mucosa normal Eyes PERRL, EOMs intact bilaterally and conjunctivae normal Neck no lymphadenopathy and supple Resp normal respiratory effort, no retractions and no use of accessory muscles Cardio regular rate, regular rhythm, S1 normal heart sound, S2 normal heart sound and no murmurs GI normal to inspection, nondistended, normoactive bowel sounds, soft to palpation, non-tender and non-distended Extremity normal to inspection, full ROM and no clubbing, cyanosis or edema Neuro oriented x3, CN's II-XII intact bilaterally and moves all extremities Sensorium / Orientation: awake and alert Motor Exam: strength 5/5 throughout Psych affect normal Assessment & Plan Assessment/Plan (1) AMANDA (acute kidney injury): (2) Sepsis: (3) UTI (urinary tract infection): PLAN: Plan #Sepsis due to UTI * 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 Urine cultures pending * on IV ceftriaxone * CT abdomen showed distended gallbladder with no evidence of pericholecystic fluid or duct dilatation. * gallbladder USG showed no distension of gallbladder or thickening of gallbladder wall * urine cultures negative and blood cultures negative after 48 hours * * #AMANDA * resolved * #Lactic acidosis: resolved #Depression: on buspirone and mirtazapine DVT prophylaxis: lovenox Disposition: dc home over next 24-48 hours # Charges/Coding Visit Charges Inpatient E&M: 03586 Subs Hosp L2
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
[2022-07-04 15:00] VITALS: BP 134/90; PULSE 68; RESP 18; TEMP 36.6; O2SAT 98
[2022-07-04 21:00] VITALS: BP 141/99; PULSE 69; RESP 18; TEMP 36.6; O2SAT 96
[2022-07-04] MEDS: Mirtazapine 15 MG Tablet PO (21:19)
[2022-07-05 03:00] VITALS: BP 131/84; BP 141/99; PULSE 57; PULSE 69; RESP 18; TEMP 36.4; TEMP 36.6; O2SAT 94; O2SAT 96
[2022-07-05] MEDS: 0.9% Normal Saline 1,000 ML 100 ML IV (04:27)
[2022-07-05 06:31] LABS: Absolute Lymphocyte Count 2.78 X10^3/uL (0.83-4.51); Absolute Neutrophil Count 4.7 X10^3/uL (2.0-7.7); Basophil# 0.07 X10^3/uL; Basophil% 0.8 % (0-1); Eosinophil# 0.42 X10^3/uL; Eosinophils% 4.9 % (0-5); Hematocrit 36.8 % (40-54); Hemoglobin 12.8 g/dL (13.0-16.5); Lymphocyte # 2.78 X10^3/ul (0.83-4.51); Lymphocyte % 32.4 % (19-41); Mean Corp Hgb Conc 34.8 g/dL (32-36); Mean Corpuscular Hgb 33.4 pg (27.0-32.0); Mean Corpuscular Volume 96.1 fL (80-94); Monocyte# 0.55 X10^3/uL; Monocyte% 6.4 % (0-10); NRBC Flagged by Analyzer 0 % (0-5); Neutrophil # 4.72 X10^3/uL (2.7-7.7); Neutrophil % 55.1 % (47-70); Platelet Count 202 K/mm3 (150-450); RBC Distribution Width CV 12.6 % (11.6-14.6); RBC Distribution Width SD 44.1 fl (35.1-43.9); Red Blood Count 3.83 M/mm3 (4.6-6.2); White Blood Count 8.6 K/mm3 (4.4-11.0)
[2022-07-05 07:04] LABS: Anion Gap 5 (5-15); BUN 8 mg/dL (7-18); BUN/Creat Ratio 9.7 RATIO (10-20); Calcium,Total 8.4 mg/dL (8.5-10.1); Chloride 110 mmol/L (98-107); Creatinine, Serum 0.82 mg/dL (0.70-1.30); EST Glomerular Filtration Rate 102 mL/min (>60); Est Glom Filt Rate - Afr Amer 123 mL/min (>60); Estimated Creatinine Clearance 106.46 ml/min; Glucose 88 mg/dL (74-106); Potassium 3.6 mmol/L (3.5-5.1); Sodium Level 142 mmol/L (136-145)
[2022-07-05 09:00] VITALS: BP 144/95; PULSE 60; RESP 18; TEMP 36.7; O2SAT 97
--- NOTE | 2022-07-05 10:18 | DS.PCM_ITS ---
Providers Date of Admission: 07/02/22 Date of Discharge: 07/05/22 Primary Care Physician: Patricia Primary Care Phys Consultations 07/02/22 03:44 Consult: Insulator Technician / Pulmonary Medicine Routine Consulting Provider: Lonnie Kumar Reason for Consult: Sepsis EMERGENT Consult: No MD Notified: Yes Date Notified: 07/02/22 Time Notified: 03:25 Method of Notification: Text Reason For Visit: SEPSIS Diagnosis Discharge Diagnosis (1) AMANDA (acute kidney injury): Status: Acute Code(s): N17.9 - Acute kidney failure, unspecified (2) Sepsis: Status: Acute Code(s): A41.9 - Sepsis, unspecified organism (3) UTI (urinary tract infection): Status: Acute Code(s): N39.0 - Urinary tract infection, site not specified Plan #Sepsis due to UTI * 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 Urine cultures pending * on IV ceftriaxone * CT abdomen showed distended gallbladder with no evidence of pericholecystic fluid or duct dilatation. * gallbladder USG showed no distension of gallbladder or thickening of gallbladder wall * urine cultures negative and blood cultures negative after 48 hours * * #AMANDA * resolved * #Lactic acidosis: resolved #Depression: on buspirone and mirtazapine DVT prophylaxis: lovenox Disposition: dc home over next 24-48 hours # Medications at Discharge Home Medications atorvastatin 40 mg tablet (Lipitor) 40 mg PO DAILY 07/01/22 buspirone 10 mg tablet 10 mg PO BID 07/01/22 cholecalciferol (vitamin D3) 125 mcg (5,000 unit) tablet (Vitamin D3) 1,250 mcg PO DAILY 07/01/22 mirtazapine 15 mg tablet 15 mg PO DAILY 07/01/22 paroxetine HCl 40 mg tablet (Paxil) 40 mg PO DAILY 07/01/22 sildenafil 100 mg tablet 100 mg PO DAILY 07/01/22 cefdinir 300 mg capsule 300 mg PO BID #10 caps 07/05/22 ondansetron 4 mg disintegrating tablet 4 mg PO Q8H PRN nausea and vomiting #10 tabs 07/05/22 Hospital Course Operations None Procedures None Summary of Care Provided Minutes Spent on Discharge: 45 Hospital Course: Patient is a 57-year-old male with a past medical history as outlined was admitted to the ED on 07/02/2022 after 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 He had associated nausea and vomiting and was unable to stand. He also was pale and diaphoretic and had subjective fever and chills and rigors. He also had chest tightness and shortness of breath and abdominal pain which is more prominent in the right upper quadrant. Review of systems is otherwise negative. He did have dysuria but was chronic and also had some decreased urine output. He was started on IV vancomycin and Zosyn. He did report a rash in response to the vancomycin administration. Urinalysis showed evidence of UTI. CAT scan showed dilated gallbladder. He was placed on IV Zosyn and admitted and managed for UTI with positive SIRS criteria. His symptoms gradually resolved and abdominal pain got better. Gallbladder ultrasound did not show any thickening of the gallbladder wall so acute cholecystitis was ruled out. Patient symptoms improved and he felt much better. Urine cultures and blood cultures were negative. He was discharged home with a prescription for p.o. cefdinir 300 mg twice daily for 10 days and also was given a prescription for p.o. Zofran. Patient said he felt nauseous when he ate but he felt that it was due to the fact that his son-in-law had after choking on a steak a few months ago so he had severe anxiety with eating and then manifested as nausea, hence he was given the prescription for p.o. Zofran. Patient remained stable and was discharged on 07/05/2022. He is follow-up with his primary care doctor within 1 to 2 weeks. Patient seen and examined prior to discharge. He felt well and had no active complaints. Review of systems otherwise negative. Labs and vitals reviewed. Medication reviewed and reconciled. Physical Exam Const alert, oriented x3 and no apparent distress General Appearance: cooperative and comfortable Orientation / Consciousness: awake Exam Limitations: no limitations HEENT normocephalic, head/scalp atraumatic, hearing grossly normal bilaterally, moist oral mucous membranes and oropharynx normal Mouth: oral and palatal mucosa normal Eyes PERRL, EOMs intact bilaterally and conjunctivae normal Neck no lymphadenopathy and supple Resp normal respiratory effort, no retractions and no use of accessory muscles Cardio regular rate, regular rhythm, S1 normal heart sound, S2 normal heart sound and no murmurs GI normal to inspection, nondistended, normoactive bowel sounds, soft to palpation, non-tender and non-distended Extremity normal to inspection, full ROM and no clubbing, cyanosis or edema Skin no rashes or lesions noted Neuro oriented x3, CN's II-XII intact bilaterally, moves all extremities and no focal motor deficits Sensorium / Orientation: awake and alert Motor Exam: strength 5/5 throughout Psych affect normal Weight / BMI Weight Weight: 184 lb 4.903 oz Body Mass Index (BMI) 24.5 ABG / Lab / Microbiology Data Result Diagrams: 07/05/22 05:55 07/05/22 05:55 Laboratory: Laboratory Results - last 24 hr 07/05/22 05:55: WBC 8.6, RBC 3.83 L, Hgb 12.8 L, Hct 36.8 L, MCV 96.1 H, MCH 33.4 H, MCHC 34.8, RDW Std Deviation 44.1 H, RDW Coeff of Miguel 12.6, Plt Count 202, MPV 10.0, Immature Gran % (Auto) 0.400, Neut % (Auto) 55.1, Lymph % (Auto) 32.4, [place] % (Auto) 6.4, Eos % (Auto) 4.9, Baso % (Auto) 0.8, Absolute Neuts (auto) 4.7, Absolute Lymphs (auto) 2.78, Nucleated RBC % 0 07/05/22 05:55: Sodium 142, Potassium 3.6, Chloride 110 H, Carbon Dioxide 27.0, Anion Gap 5, BUN 8, Creatinine 0.82, Estim Creat Clear Calc 106.46, Est GFR (MDRD) Af Amer 123, Est GFR (MDRD) Non-Af 102, BUN/Creatinine Ratio 9.7 L, Glucose 88, Calcium 8.4 L Microbiology: Microbiology 07/02/22 00:18 Urine, Clean Catch Urine Culture - Final Culture exhibits no growth. 07/02/22 01:05 Blood Culture (Wb) - Anticubital Left Blood Culture - Preliminary No growth in 48 hours. 07/02/22 01:20 Blood Culture (Wb) - Anticubital Left Blood Culture - Pre liminary No growth in 48 hours. 07/02/22 00:15 Nasal Secretion SARS-CoV-2 & FLU Antigen (Rapid) - Final D/C Instructions Discharge Diet: Low fat / Low cholesterol Weight Bearing Status: Weight bearing as tolerated Call your doctor if you observe: Fever of 101 or Higher, Shortness of breath, Dizziness, Swelling in the ankles, Chest pain and Increased palpitations (irregular heartbeat) Meaningful Use Info Meaningful Use Diagnoses (Choose all that apply): None applicable Discharge Plan Admission Admit Date/Time: 07/02/22 03:18 Primary Reason for Your Visit: UTI Attending Provider: Pamela Smith Primary Care Provider: [employer] [place] Consulting Providers: Ab Castañeda ; Lonnie Kumar ; Vikas Ramírez Instructions Patient Instructions: Urinary Tract Infections in Men Discharge Orders/Prescriptions Prescriptions: New cefdinir 300 mg capsule 300 mg PO BID Qty: 10 0RF ondansetron 4 mg tablet,disintegrating 4 mg PO Q8H PRN (Reason: nausea and vomiting) Qty: 10 0RF Continued atorvastatin [Lipitor] 40 mg Tablet 40 mg PO DAILY sildenafil 100 mg Tablet 100 mg PO DAILY buspirone 10 mg Tablet 10 mg PO BID mirtazapine 15 mg Tablet 15 mg PO DAILY paroxetine HCl [Paxil] 40 mg Tablet 40 mg PO DAILY cholecalciferol (vitamin D3) [Vitamin D3] 125 mcg (5,000 unit) Tablet 1,250 mcg PO DAILY Rx Instructions: 50,000 unit Referrals / Follow Up: Care Physician,No Primary [Non-Staff] - Disposition Disposition (needs filled in before D/C Order can be placed): Home, Self Care Charges/Coding Visit Charges Inpatient E&M: 38838 Disch Hosp
--- NOTE | 2022-07-05 10:18 | DCINST_ITS ---
Discharge Instructions Diet Discharge Diet: Low fat / Low cholesterol Activity Discharge Activity: Return to Normal Activity Weight Bearing Status: Weight bearing as tolerated Dressing / Incision Call your doctor if you observe: Fever of 101 or Higher, Shortness of breath, Dizziness, Swelling in the ankles, Chest pain and Increased palpitations (irregular heartbeat) Follow Up Care Test Results: Test results from this visit will be discussed in further detail at your follow- up appointment, if applicable. Discharge Plan Admission Admit Date/Time: 07/02/22 03:18 Primary Reason for Your Visit: UTI Attending Provider: Pamela Smith Primary Care Provider: Care Physician,No Primary Consulting Providers: Ab Castañeda ; Lonnie Kumar ; Vikas Ramírez Instructions Patient Instructions: Urinary Tract Infections in Men Discharge Orders/Prescriptions Prescriptions: New cefdinir 300 mg capsule 300 mg PO BID Qty: 10 0RF ondansetron 4 mg tablet,disintegrating 4 mg PO Q8H PRN (Reason: nausea and vomiting) Qty: 10 0RF Continued atorvastatin [Lipitor] 40 mg Tablet 40 mg PO DAILY sildenafil 100 mg Tablet 100 mg PO DAILY buspirone 10 mg Tablet 10 mg PO BID mirtazapine 15 mg Tablet 15 mg PO DAILY paroxetine HCl [Paxil] 40 mg Tablet 40 mg PO DAILY cholecalciferol (vitamin D3) [Vitamin D3] 125 mcg (5,000 unit) Tablet 1,250 mcg PO DAILY Rx Instructions: 50,000 unit Referrals / Follow Up: Care Physician,No Primary [Primary Care Provider] - Disposition Disposition (needs filled in before D/C Order can be placed): Home, Self Care
--- NOTE | 2022-07-05 10:45 | CASEMGMT ---
RN CM called retail pharmacy, pt cost for rx is $29.92. NICOLE CABRERA in to pt room, pt states this is affordable to him. Pt would like meds delivered to the room, tc to retail pharmacy to make aware. Pt denies any further homegoing needs.
[2022-07-05] MEDS: Paroxetine 20 MG Tablet 40 MG PO (11:16)
[2022-07-05] MEDS: busPIRone 5 MG Tablet 10 MG PO (11:16)
--- NOTE | 2022-07-05 12:22 | PHA.DC.MC ---
Pharmacy Service has performed discharge medication reconciliation and counseling for this patient. 1. CEFDINIR 300MG PO BID X 5 DAYS 2. ONDANSETRON 4MG PO Q8H PRN NAUSEA/VOMITING The patient's discharge medication list was reviewed for discrepancies and discrepancies were resolved. Home Medications atorvastatin 40 mg tablet (Lipitor) 40 mg PO DAILY 07/01/22 buspirone 10 mg tablet 10 mg PO BID 07/01/22 cholecalciferol (vitamin D3) 125 mcg (5,000 unit) tablet (Vitamin D3) 1,250 mcg PO DAILY 07/01/22 mirtazapine 15 mg tablet 15 mg PO DAILY 07/01/22 paroxetine HCl 40 mg tablet (Paxil) 40 mg PO DAILY 07/01/22 sildenafil 100 mg tablet 100 mg PO DAILY 07/01/22 cefdinir 300 mg capsule 300 mg PO BID #10 caps 07/05/22 ondansetron 4 mg disintegrating tablet 4 mg PO Q8H PRN nausea and vomiting #10 tabs 07/05/22 The patient was counseled on the following discharge medications and changes in medications for homegoing were reviewed. The Reason for Use, instructions for use, and potential side effects were reviewed for all new medications. The patient's questions regarding all of their medications were answered. The patient was able to verbally demonstrate an understanding of their discharge medications.
== END 2022-07-05 17:29 | disposition home or self-care (01) | DRG 871 ==
LOC: ED 07-02 03:00 → ICU 07-02 03:27 → MS3 07-02 15:40
PROVIDERS: Emergency Medicine; Family Medicine; Admitting Provider Hospitalist; Emergency Provider Emergency Medicine; Visit Provider Student in an Organized Health Care Education/Training Program
DX: A41.9 Sepsis, unspecified organism (principal); N17.0 Acute kidney failure with tubular necrosis; E87.20 Acidosis, unspecified; N39.0 Urinary tract infection, site not specified; E80.6 Other disorders of bilirubin metabolism; F41.9 Anxiety disorder, unspecified; E83.52 Hypercalcemia; E78.5 Hyperlipidemia, unspecified; Z87.891 Personal history of nicotine dependence; R91.8 Other nonspecific abnormal finding of lung field; F32.A Depression, unspecified; R55 Syncope and collapse; Z79.899 Other long term (current) drug therapy; R21 Rash and other nonspecific skin eruption
CPT/HCPCS: 36415; 71045; 71250; 74176; 76705; 80048; 80053; 80076; 81001; 82306; 83605; 83690; 84145; 84484; 85025; 87040; 87086; 87428; 93005; 99284; J7030; J7050; A4216; J2405